=== PATIENT | male | born 1970 | race African-American/Black ===

== ENCOUNTER 2021-03-29 16:01 | Emergency (ER) | payer OTHER ==
[~2021-03-29] VITALS: Ht 193 cm; Wt 142.0 kg
[~2021-03-29 16:01] MED LIST: FLUO-125 PO; PRA1C PO; SIMV10TA84 PO
[2021-03-29] MEDS ORDERED: HYDROmorphone HCL 2 MG/ML VL IM ONE (16:30)
[2021-03-29] MEDS ORDERED: PROMETHAZINE HCL 25 MG/ML 1ML IM ONE (16:30)
[2021-03-29 17:49] VITALS: BP 136/74
== END 2021-03-29 17:55 | disposition home or self-care (01) ==
LOC: EDBD 16:02 → ER 16:02
DX: G89.29 Other chronic pain (principal); M54.50 Low back pain, unspecified; M54.16 Radiculopathy, lumbar region; Z79.899 Other long term (current) drug therapy; Z88.0 Allergy status to penicillin
CPT/HCPCS: 96372; 99284; J1170; J2550

== ENCOUNTER 2023-02-07 01:52 | Emergency (ER) | payer OTHER ==
[~2023-02-07] VITALS: Ht 198.1 cm; Wt 143.6 kg
[~2023-02-07 01:52] MED LIST changes: +SIMV10TA20 PO; -SIMV10TA84 PO
[2023-02-07] MEDS ORDERED: HYDROcodone-ACET 10/325MG TAB PO ONE (02:45)
[2023-02-07] MEDS ORDERED: LABETALOL HCL 5 MG/ML 4ML SYRINGE IV ONE (07:30)
[2023-02-07] MEDS ORDERED: SODIUM CHLORIDE 0.9% 1,000 ML IV ONE (07:30)
[2023-02-07] MEDS ORDERED: METOCLOPRAMIDE HCL 5MG/ml INJ 2ml VIAL IV ONE (07:30)
[2023-02-07] MEDS ORDERED: KETOROLAC TROMETH 30 MG/ML 1ML VIAL IV ONE (07:30)
[2023-02-07 08:30] LABS: Basophils # (auto) 0.1 10 ^3/uL (0-0.2); Basophils % (auto) 0.9 % (0.0-2.0); Eosinophils # (auto) 0.1 10 ^3/uL (0-0.8); Eosinophils % (auto) 1.9 % (0.0-7.0); Hematocrit 45.6 % (41.0-53.0); Hemoglobin 15.1 g/dL (13.5-17.5); Lymphocytes # (auto) 2.7 10 ^3/uL (0.4-5.4); Lymphocytes % (auto) 41.7 % (10.0-50.0); Mean Corpuscular Hemoglobin 29.1 pg (28.0-32.0); Mean Corpuscular Hgb Conc. 33.1 g/dL (32.0-36.0); Monocytes # (auto) 0.3 10 ^3/uL (0-1.3); Monocytes % (auto) 5.2 % (0.0-12.0); Neutrophils # (auto) 3.2 10 ^3/uL (1.6-8.6); Neutrophils % (auto) 50.3 % (37.0-80.0); Nucleated Red Blood Cells % 0.2 %; Red Blood Cells 5.19 10^6/uL (4.5-5.90); Red Cell Distribution Width 13.3 % (11.8-14.3); White Blood Cell 6.4 10^3/uL (4.4-10.8)
[2023-02-07 08:33] VITALS: PULSE 71; RESP 18; O2SAT 98
[2023-02-07 09:21] LABS: Albumin 3.9 g/dL (3.4-5.0); BUN/Creatinine Ratio 11.1 (10.0-20.0); Calcium 9.1 mg/dL (8.5-10.1); Magnesium 2.4 mg/dL (1.6-2.6); Potassium 4.1 mmol/L (3.5-5.1)
[2023-02-07 09:31] LABS: Bilirubin, Total 0.3 mg/dL (0.2-1.0); Total Protein 7.9 g/dL (6.4-8.2)
[2023-02-07] MEDS ORDERED: CYCL-838 PO (10:05)
[2023-02-07] MEDS ORDERED: PRED20TA2 PO (10:05)
[2023-02-07] MEDS ORDERED: ATEN-60 PO (10:05)
[2023-02-07 10:48] VITALS: BP 142/73; PULSE 60; RESP 15; TEMP 98.1; O2SAT 98
== END 2023-02-07 10:53 | disposition home or self-care (01) ==
LOC: ER 01:52
DX: G44.209 Tension-type headache, unspecified, not intractable (principal); I10 Essential (primary) hypertension; M47.812 Spondylosis without myelopathy or radiculopathy, cervical region; E78.5 Hyperlipidemia, unspecified; R07.89 Other chest pain
CPT/HCPCS: 36415; 70450; 71046; 72125; 80053; 83735; 85025; 96361; 96374; 96375; 99285; J1885; J2765; J3490; J7030